=== PATIENT | male | born 1995 | race Caucasian/White ===

== ENCOUNTER 2019-05-20 07:02 | Day surgery (SDC) | payer BC ==
[2019-05-20] MEDS ORDERED: Oxymetazoline HCl 0.05% ( 15 ML ) ONE (08:08)
[2019-05-20] MEDS ORDERED: Fentanyl 250 MCG/5 ML VIAL ONE (08:39)
[2019-05-20] MEDS ORDERED: Midazolam HCl 2 mg/2 ml Vial ONE (08:40)
[2019-05-20] MEDS ORDERED: Lidocaine 1% w/Epinephrine 1:100K 20 ML VIAL ONE (08:50)
[2019-05-20] MEDS ORDERED: PROPOFOL 200 MG/20 ML VIAL ONE (10:32)
[2019-05-20] MEDS ORDERED: Succinylcholine Chloride 20 MG/ML 10 ml SYRINGE FS ONE (10:32)
[2019-05-20] MEDS ORDERED: Ondansetron PF 4 MG/2 ML Vial ONE (10:32)
[2019-05-20] MEDS ORDERED: Dexamethasone 20 MG/5 ML VIAL ONE (10:32)
[2019-05-20] MEDS ORDERED: Rocuronium Bromide 10 MG/ML (10ML VIAL) ONE (10:32)
[2019-05-20] MEDS ORDERED: Lidocaine 1% PF 5 ML VIAL ONE (10:32)
--- NOTE | 2019-05-21 14:08 | OP ---
DATE OF PROCEDURE: 05/20/2019 PREOPERATIVE DIAGNOSES: 1. Chronic adenotonsillitis. 2. Adenotonsillar hypertrophy. 3. Bilateral inferior turbinate hypertrophy. POSTOPERATIVE DIAGNOSES: 1. Chronic adenotonsillitis. 2. Adenotonsillar hypertrophy. 3. Bilateral inferior turbinate hypertrophy. PROCEDURES PERFORMED: 1. Tonsillectomy and adenoidectomy. 2. Bilateral inferior turbinate submucosal resection. ESTIMATED BLOOD LOSS: 5 mL. COMPLICATIONS: None. ANESTHESIA: GETA. PROCEDURE IN DETAIL: After consent was obtained, the patient was identified, brought to the operating room, and placed on the operating table in the supine position. General endotracheal anesthesia and intravenous access were obtained and we proceeded with positioning the patient for oropharyngeal surgery. Oropharyngeal exposure was obtained with a Nazanin-Cheng mouth gag after a head drape was placed and secured with a towel clip. The Nazanin-Cheng mouth gag was then suspended from the Quevedo tray and palatal elevation was achieved with a red rubber catheter. The right tonsil was addressed first. We used a curved Allis to grasp the tonsil and retract it medially as an anterior pillar incision was made. The retrotonsillar fascial plane was then established and blunt dissection was performed with the suction cautery. Blood vessels were anticipated, identified, and cauterized as they were encountered. Ultimately, dissection was carried to the posterior tonsillar pillar mucosa which was incised hemostatically, as well as the base of tongue connection. The tonsil was then passed off as a specimen and bleeding points within the tonsillar bed were cauterized under direct visualization. We subsequently turned our attention to the contralateral side, where using a similar technique, a near identical procedure was performed. Again, the tonsil was grasped and retracted medially with a curved Allis. The retrotonsillar fascial plane was established and while the anterior pillar was retracted medially. The hemostatic blunt dissection of the tonsil with a suction cautery was performed with blood vessels anticipated, identified, and cauterized as they were encountered. Again, dissection continued to the base of tongue and posterior tonsillar pillar mucosa which was incised in a hemostatic fashion. The tonsillar beds were then carefully inspected and bleeding points were identified and cauterized with a suction cautery. After this portion of the procedure, hemostasis was completely obtained. Under direct mirror visualization, we visualized the adenoid pad. Under direct mirror visualization, we removed the bulk of the adenoid tissue with the adenoid curette. We then packed the nasopharynx for an appropriate period of time with Wld-[id number]-klddgvkkz tonsillar sponges. After a period of observation, we removed the pack. Under indirect mirror visualization, we obtained hemostasis and vaporization of residual adenoid tissue with electrocautery. The patient's oral cavity was copiously irrigated with iced saline and subsequently suctioned. After completion of the procedure, the nasal cavity and oropharynx were irrigated and suctioned as were the gastric contents. The patient was then awakened and transferred to the recovery room where the patient remained in stable condition prior to discharge to Day Stay. Following this, the submucosal microdebrider was then inserted into the inferior turbinates and submucosal resection was performed of the anterior and inferior portions of the inferior turbinates bilaterally. The patient tolerated the procedure well. Job ID: [id number]
== END 2019-05-20 11:35 | disposition home or self-care (01) ==
LOC: SDC 07:02
PROVIDERS: ATTEND Otolaryngology Plastic Surgery within the Head & Neck
PROC: 0CTQXZZ Resection of Adenoids, External Approach (ICD-10-PCS; principal; 2019-05-20)
PROC: 09TL8ZZ Resection of Nasal Turbinate, Via Natural or Artificial Opening Endoscopic (ICD-10-PCS; principal; 2019-05-20)
PROC: 0CTPXZZ Resection of Tonsils, External Approach (ICD-10-PCS; principal; 2019-05-20)
DX: J34.3 Hypertrophy of nasal turbinates (principal); J35.03 Chronic tonsillitis and adenoiditis; K13.79 Other lesions of oral mucosa; E03.9 Hypothyroidism, unspecified
CPT/HCPCS: 88304; J0131; J1100; J2001; J2250; J2405; J2704; J3010

== ENCOUNTER 2019-05-26 01:43 | Day surgery (SDC) | payer BC ==
[2019-05-26] MEDS ORDERED: Lidocaine 2% Jelly 5 ML TUBE ONE (02:49)
[2019-05-26] MEDS ORDERED: Fentanyl 100 MCG/2 ML VIAL ONE (02:49)
[2019-05-26] MEDS ORDERED: Midazolam HCl 2 mg/2 ml Vial ONE (02:49)
[2019-05-26 04:40] LABS: Hemoglobin 13.6 g/dL (14.0-18.0)
[2019-05-26] MEDS ORDERED: Ondansetron PF 4 MG/2 ML Vial ONE (10:54)
[2019-05-26] MEDS ORDERED: Lidocaine 1% PF 5 ML VIAL ONE (10:54)
[2019-05-26] MEDS ORDERED: Rocuronium Bromide 10 MG/ML (10ML VIAL) ONE (10:54)
[2019-05-26] MEDS ORDERED: Dexamethasone 20 MG/5 ML VIAL ONE (10:54)
[2019-05-26] MEDS ORDERED: PROPOFOL 200 MG/20 ML VIAL ONE (10:54)
[2019-05-26] MEDS ORDERED: Succinylcholine Chloride 20 MG/ML 10 ml SYRINGE FS ONE (10:54)
--- NOTE | 2019-05-26 11:30 | OP ---
DATE OF PROCEDURE: 05/26/2019 PREOPERATIVE DIAGNOSIS: Oropharyngeal bleeding. POSTOPERATIVE DIAGNOSIS: Oropharyngeal bleeding from right tonsillar fossa. PROCEDURE: Cautery and control of oropharyngeal bleeding. ASSISTANTS: None. FINDINGS: Right tonsillar fossa, blood clot with oozing from multiple sites. ANESTHESIA: General endotracheal anesthesia. FLUIDS: See anesthesia report. ESTIMATED BLOOD LOSS: 15 mL. DRAINS: None. SPECIMENS: None. IMPLANTS: None. COMPLICATIONS: None. The patient tolerated the procedure well. CONDITION: The patient was transferred, extubated, stable to the recovery room in PACU after the surgery was completed. PROCEDURE IN DETAIL: The patient was taken back to the operating room, laid supine and placed under general endotracheal anesthesia. The anesthesiologist noted a pool of fresh blood in the pharynx. After the patient was intubated, the patient was turned 90 degrees and prepped and draped, and a Nazanin-Cheng mouth gag was placed in the oral cavity and oropharynx and exposed the tonsillar fossa within the oropharynx. Fresh blood was seen and suctioned roughly 5 or 6 mL. The blood clot on the right tonsillar fossa was removed and several small sites were found to be bleeding. I cauterized those areas with suction Bovie on a setting of 15, which quickly stopped the bleeding. Next, both tonsillar fossas were probed and combed with suction Bovie to induce any bleeding for any fragile areas and any small areas of any oozing were cauterized. Next, the oropharynx was flushed and irrigated as well as the nasopharynx to prevent blood clots and aspiration and the abdominal contents were suctioned with an orogastric tube and found to have significant old blood that had been swallowed. A 60 mL syringe with saline was used to irrigate through the clean orogastric tube to lavage the stomach and then again the stomach was suctioned clear with an orogastric tube. The patient tolerated the procedure well and was turned over to anesthesia for emergence. Job ID: [id number] MTDD
--- NOTE | 2019-05-26 23:27 | CON ---
DATE OF CONSULTATION: REASON FOR CONSULTATION: Oral bleeding. CHIEF COMPLAINT: The patient complains of oral bleeding throughout the day. HISTORY OF PRESENT ILLNESS: The patient is a 23-year-old male patient who had history of recurrent tonsillitis and had a previous tonsillectomy and adenoidectomy roughly 7 days ago and presents emergently to the emergency room with oropharyngeal bleeding, coughing up blood, swallowing blood, nausea and vomiting. Pain is controlled with [place] and ibuprofen. The patient said the bleeding has not stopped and is coming for surgical intervention. PAST MEDICAL HISTORY: No contributing past medical history. PAST SURGICAL HISTORY: See HPI. FAMILY HISTORY: Noncontributory. SOCIAL HISTORY: Noncontributory. MEDICATIONS: Taking [place] and ibuprofen currently. ALLERGIES: NO KNOWN DRUG ALLERGIES. REVIEW OF SYSTEMS: A 9-point review of systems is negative except for oral bleeding, nausea and vomiting. PHYSICAL EXAMINATION: GENERAL: Alert, oriented and responsive, responding appropriately to commands. SKIN: The face of the skin is normal. No lesions, rashes or pallor. EARS: Ear canals are clear. NOSE: Septum is midline. Mucosa is normal and moist and there is no drainage. Oral cavity, teeth, lips, and tongue are intact with no trauma or lacerations. Posterior pharynx has a right tonsillar fossa blood clot and some oozing from around this blood clot down into dependent portions of the pharynx. NECK: Flat. Trachea is midline. No lymphadenopathy. CHEST: Equal rise. No shortness of breath. No wheezing. ASSESSMENT AND PLAN: A 23-year-old male patient with recent tonsillectomy, presenting with oropharyngeal bleeding, likely a late posttonsillectomy bleed. The patient will be taken to the operative room for cautery and for surgical intervention. Job ID: [id number]
== END 2019-05-26 05:55 | disposition home or self-care (01) ==
LOC: ERS 01:43 → SDC/OP 03:24
PROVIDERS: ATTEND Student in an Organized Health Care Education/Training Program
PROC: 0W3Q3ZZ Control Bleeding in Respiratory Tract, Percutaneous Approach (ICD-10-PCS; principal; 2019-05-26)
DX: J95.830 Postprocedural hemorrhage of a respiratory system organ or structure following a respiratory system procedure (principal); Y83.6 Removal of other organ (partial) (total) as the cause of abnormal reaction of the patient, or of later complication, without mention of misadventure at the time of the procedure; Z87.09 Personal history of other diseases of the respiratory system
CPT/HCPCS: 85014; 85018; J1100; J2001; J2250; J2405; J2704; J3010

== ENCOUNTER 2019-09-02 07:12 | Day surgery (SDC) | payer BC ==
--- NOTE | 2019-08-18 09:02 | HP ---
HISTORY OF PRESENT ILLNESS: The patient is a 24-year-old male with a multiple month history of enlarging mass on his left wrist without injury. The mass is interfering with day-to-day activities and interfere with wearing his watch. He has had persistent symptoms at rest and restriction of activities. PAST SOCIAL HISTORY: The patient is otherwise in good health. He normally takes no routine medications. 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 ALLERGIES: HE HAS NO KNOWN ALLERGIES. FAMILY HISTORY: Otherwise unremarkable. SOCIAL HISTORY: Otherwise unremarkable. REVIEW OF SYSTEMS: Otherwise unremarkable. PHYSICAL EXAMINATION: GENERAL: Reveals a healthy male. HEENT: Unremarkable. NECK: Supple. CHEST: Clear. HEART: Regular rate and rhythm. ABDOMEN: Soft, nontender. RECTAL: Deferred. GENITAL: Deferred. EXTREMITIES: Pertinent findings of the left wrist. There is a 1 x 1 cm firm cystic mass over the dorsal radial aspect of the right wrist. There is full range of motion. There is mild tenderness. Neurovascular exam is intact. DIAGNOSTIC STUDIES: X-rays of the left wrist are normal. IMPRESSION: Dorsal carpal ganglion, left wrist. PLAN: Surgical excision. The nature of surgery, length of recovery, and potential complications such as infection, loss of motion, incomplete relief, neurovascular injury, recurrence, need for additional treatment, and repeat surgery have been discussed in detail. Job ID: [id number]
[2019-08-18 09:41] VITALS: BMI 29.4
--- NOTE | 2019-09-01 10:01 | HP ---
ADDENDUM: The patient is originally scheduled for ganglion excision of his left wrist on 08/19/2019, but this surgery was rescheduled because of the presence of a URI, which is subsequently resolved. Please see the history and physical dated 08/18/2019. IMPRESSION: Ganglion, left wrist. PLAN: Surgical excision. Job ID: [id number]
[2019-09-02] MEDS ORDERED: Bupivacaine PF 0.5% 30 ML VIAL ONE (08:34)
[2019-09-02] MEDS ORDERED: Fentanyl 100 MCG/2 ML VIAL ONE ×3 (08:34→10:02)
[2019-09-02] MEDS ORDERED: Ondansetron PF 4 MG/2 ML Vial ONE (10:25)
[2019-09-02] MEDS ORDERED: Ketorolac Tromethamine 30 MG/ML VIAL ONE (10:25)
[2019-09-02] MEDS ORDERED: Metoclopramide HCl 10 MG/2 ML VIAL ONE (10:25)
[2019-09-02] MEDS ORDERED: PROPOFOL 200 MG/20 ML VIAL ONE (10:25)
[2019-09-02] MEDS ORDERED: Lidocaine 1% PF 5 ML VIAL ONE (10:25)
[2019-09-02] MEDS ORDERED: Dexamethasone 20 MG/5 ML VIAL ONE (10:25)
--- NOTE | 2019-09-02 12:02 | OP ---
DATE OF PROCEDURE: 09/02/2019 PREOPERATIVE DIAGNOSIS: Dorsal carpal ganglion, left wrist. POSTOPERATIVE DIAGNOSIS: Dorsal carpal ganglion, left wrist. PROCEDURE PERFORMED: Excision of dorsal carpal ganglion, left wrist. ANESTHESIA: General. OPERATIVE FINDINGS: There was a large ganglion cyst arising between the 3rd and 4th dorsal compartments, which extended down into the wrist joint. DESCRIPTION OF PROCEDURE: After satisfactory anesthesia was induced in supine position, the patient was prepped and draped in routine manner. The left arm was elevated and exsanguinated with an Esmarch bandage and the tourniquet inflated to 250 mmHg. A 3-cm transverse incision was made over the dorsum of the wrist over the palpable mass, carried down through the subcutaneous tissues, bleeding points were controlled with cautery. Dorsal retinaculum was incised. Tendons retracted and protected and the mass was excised in its entirety with sharp and blunt dissection taking a window of the dorsal wrist capsule along with this. The specimen was sent to Pathology. There appeared to be satisfactory excision of the mass. The wound was thoroughly irrigated. Additional bleeding points were controlled with Bovie cautery. The subcutaneous tissues were injected with 10 mL of 0.5% plain Marcaine. The subcutaneous tissues were closed with interrupted 3-0 Vicryl and the skin closed with running subcuticular 3-0 nylon. A sterile bulky compressive dressing was applied and the tourniquet deflated after 36 minutes. The hand promptly pinked up and the patient was immobilized in a volar plaster splint. He was awakened and taken to the recovery room in stable condition. No apparent intraoperative complications. The estimated blood loss was negligible. The patient will be discharged home in satisfactory condition, instructed on ice and elevation, and given written cast care instructions. He was given a prescription for [place] 5 for pain, 24 tablets. He will be rechecked in my office in approximately 1 week or sooner if there are any problems prior to that time. Job ID: [id number]
== END 2019-09-02 11:45 | disposition home or self-care (01) ==
LOC: SDC 07:12
PROVIDERS: ATTEND Orthopaedic Surgery
PROC: 0LB60ZZ Excision of Left Lower Arm and Wrist Tendon, Open Approach (ICD-10-PCS; principal; 2019-09-02)
DX: M67.432 Ganglion, left wrist (principal)
CPT/HCPCS: 88304; J0690; J1100; J1885; J2001; J2405; J2704; J2765; J3010; S0020